=== PATIENT | female | born 1945 | race Caucasian/White ===

== ENCOUNTER → 2017-07-22 | Outpatient (CLI) | payer MEDICARE, OTHER | END | disposition home or self-care (01) | LOC: CFH 12:34 | PROVIDERS: ATTEND Internal Medicine Hematology & Oncology | DX: Z12.31 Encounter for screening mammogram for malignant neoplasm of breast (principal); Z85.3 Personal history of malignant neoplasm of breast; Z92.3 Personal history of irradiation | CPT/HCPCS: G0202 ==

== ENCOUNTER → 2018-03-10 | Outpatient (CLI) | payer MEDICARE, OTHER | LOC: ROC 08:11 | PROVIDERS: ATTEND Radiology Radiation Oncology | DX: Z08 Encounter for follow-up examination after completed treatment for malignant neoplasm (principal); C50.411 Malignant neoplasm of upper-outer quadrant of right female breast | CPT/HCPCS: G0463 ==

== ENCOUNTER → 2018-07-23 | Outpatient (CLI) | payer MEDICARE, OTHER | END | disposition home or self-care (01) | LOC: CFH 08:44 | PROVIDERS: ATTEND Internal Medicine Hematology & Oncology | DX: Z12.31 Encounter for screening mammogram for malignant neoplasm of breast (principal); Z85.3 Personal history of malignant neoplasm of breast | CPT/HCPCS: 77067 ==

== ENCOUNTER 2018-12-08 10:04 | Day surgery (SDC) | payer MEDICARE, OTHER ==
[~2018-12-08] VITALS: Ht 162.6 cm; Wt 78.0 kg
[2018-12-08] MEDS ORDERED: SODIUM CHLORIDE 0.9% 1,000 ML IV SCH (10:45)
[2018-12-08] MEDS ORDERED: LEVO88TA43 PO (10:48)
[2018-12-08] MEDS ORDERED: OMEP40CA6 PO (10:48)
[2018-12-08] MEDS ORDERED: LIDOCAINE-MPF 1%, 5ML ONE (11:12)
[2018-12-08 11:20] VITALS: BP 143/86
[2018-12-08] MEDS ORDERED: PROP120C3 PO (11:29)
[2018-12-08 11:30] LABS: INTERNATIONAL NORMALIZED RATIO 1.06 (0.93-1.1); PROTHROMBIN TIME 11.2 Seconds (9.6-11.5)
[2018-12-08] MEDS ORDERED: NALOXONE 1 MG/ML, 2ML ONE (11:40)
[2018-12-08] MEDS ORDERED: FENTANYL PF 100 MCG/2ML ONE (11:40)
[2018-12-08] MEDS ORDERED: FLUMAZENIL 0.1 MG/1 ML, 5ML ONE (11:40)
[2018-12-08] MEDS ORDERED: MIDAZOLAM 1 MG/ML, 5ML ONE (11:40)
== END 2018-12-08 14:50 | disposition home or self-care (01) ==
LOC: OUT 10:04 → EDSTATUS 12:00 → OUT 14:50
PROVIDERS: ATTEND Internal Medicine
DX: K73.8 Other chronic hepatitis, not elsewhere classified (principal); K74.0 Hepatic fibrosis; Z88.5 Allergy status to narcotic agent; Z88.8 Allergy status to other drugs, medicaments and biological substances; Z87.891 Personal history of nicotine dependence; Z85.3 Personal history of malignant neoplasm of breast; Z90.11 Acquired absence of right breast and nipple
CPT/HCPCS: 36415; 47000; 77012; 85610; 88307; 88313; 99156; J2250; J3010; J7030; 99157; J2310